=== PATIENT | female | born 1985 ===

== ENCOUNTER 2023-12-24 16:41 | Outpatient (REF) | payer MEDICAID, SELFPAY ==
--- NOTE | 2023-12-24 07:45 | PAPFT_PTH ---
PATIENT: Che Wong LOC: [facility]#:[id number] AGE/SX: 38/F ROOM: RE12/24/[address]: ROMANA: 1985 BED: DIS: 12/24/2023 SPEC #: [id number] RECD: 12/24/23 17:31 STATUS: JUVE AUSTIN #: [id number] EMILIA: 12/24/23 07:[address]: Parris Garay DEPT: [facility] Cytology RECD BY: Queenie Ansari ENTERED: 12/24/23 17:31 SP TYPE: PAPFT ROCIO DR: Unknown,Unknown Tissues: 1 - CX/ENDOCX FOR PAP SMEARS Procedures: PAP THIN PREP/[facility] Screening HPV DNA PROBE Comments: [id number]
== END 2023-12-24 16:42 | disposition home or self-care (01) ==
LOC: NCHCN 16:41
PROVIDERS: Visit Provider Family Medicine
DX: Z00.01 Encounter for general adult medical examination with abnormal findings (principal); Z12.4 Encounter for screening for malignant neoplasm of cervix
CPT/HCPCS: 88142; 87624